=== PATIENT | female | born 1965 | race Caucasian/White ===

== ENCOUNTER 2018-03-31 23:12 | Emergency (ER) | payer MEDICAID ==
--- NOTE | 2018-03-31 23:15 | NUR ---
to bed 11 bib paramedics c/o highblood pressure SBP 200's per pt report. 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 pt aaox4 no acute distress noted, resp even and unlabored. pt appears anxious at this time. pt denies pain or discomfort. pupils perrla, pt able to move all extremities well with bilateral equal telephone order clerk room service. er md at bedside to eval pt with orders received. will carry out orders.
--- NOTE | 2018-03-31 23:35 | NUR ---
pt transported to radiology for ct head.
--- NOTE | 2018-03-31 23:58 | NUR ---
pt back from radiology. pending ct head result.
[2018-03-31 23:59] LABS: BASOPHILS % (AUTO) 0.4 % (0.0-2.0); EOSINOPHILS % (AUTO) 0.2 % (0.0-6.0); HEMATOCRIT 39 % (33-45); HEMOGLOBIN 13.3 g/dL (11.5-14.8); LYMPHOCYTES # (AUTO) 1.7 /CMM (0.8-4.8); LYMPHOCYTES % (AUTO) 31.6 % (20.0-44.0); MEAN CORPUSCULAR HEMOGLOBIN 31 PG (26.0-33.0); MEAN CORPUSCULAR HGB CONC 34 g/dl (31.0-36.0); MEAN CORPUSCULAR VOLUME 92 fL (82-100); MONOCYTES # (AUTO) 0.5 /CMM (0.1-1.30); MONOCYTES % (AUTO) 9.7 % (2.0-12.0); NEUTROPHILS # (AUTO) 3.2 /CMM (1.8-8.9); NEUTROPHILS % (AUTO) 58.1 % (43.0-81.0); PLATELET COUNT (AUTO) 264 /CMM (150-450); RDW COEFFICIENT OF VARIATION 13.3 (11.5-15.0); WHITE BLOOD COUNT (AUTO) 5.4 K/uL (4.3-11.0)
[2018-04-01 00:04] LABS: APPEARANCE,URINE CLEAR (CLEAR); BILIRUBIN,URINE NEGATIVE (NEGATIVE); BLOOD, URINE NEGATIVE Ery/uL (NEGATIVE); KETONES,URINE NEGATIVE (NEGATIVE); LEUKOCYTE ESTERASE ,URINE NEGATIVE (NEGATIVE); NITRITE, URINE NEGATIVE (NEGATIVE); PH,URINE 7.5 (5.0-8.0); PROTEIN,URINE NEGATIVE (NEGATIVE); UGLUCOSE NEGATIVE (NEGATIVE); UROBILINOGEN,URINE 0.2 EU/dL (0.2)
[2018-04-01 00:11] LABS: COLOR,URINE STRAW (YELLOW)
[2018-04-01 00:15] LABS: INR 0.93 (0.87-1.13)
[2018-04-01 00:19] LABS: TROPONIN I < 0.017 ng/mL (0.00-0.056)
[2018-04-01 00:30] LABS: CALCIUM, SERUM 9.4 mg/dL (8.5-10.1); CARBON DIOXIDE 27 mmol/L (21-32); CHLORIDE 103 mmol/L (98-107); CREATININE 0.8 mg/dL (0.6-1.3); GLUCOSE 96 mg/dL (74-106); POTASSIUM 3.3 mmol/L (3.5-5.1); SODIUM SERUM 139 mmol/L (136-145); UREA NITROGEN, BLOOD 11 mg/dL (7-18)
[2018-04-01 00:38] LABS: ALANINE AMINOTRANSFERASE 24 U/L (12-78); ALBUMIN 4.2 g/dL (3.4-5.0); ALKALINE PHOSPHATASE 75 U/L (46-116); ASPARTATE AMINOTRANSFERASE 15 U/L (15-37); BILIRUBIN,TOTAL 0.2 mg/dL (0.2-1.0); TOTAL PROTEIN, SERUM 7.9 g/dL (6.4-8.2)
[2018-04-01 01:07] VITALS: BP 156/82
--- NOTE | 2018-04-01 01:08 | NUR ---
IV removed. Catheter intact and site benign. Pressure and 4x4 applied to site. No bleeding noted. Patient discharged to home in stable condition. Written and verbal after care instructions given. Patient verbalizes understanding of instruction. ambulatory with a steady gait
== END 2018-04-01 01:09 | disposition home or self-care (01) ==
LOC: ER 23:13
DX: I10 Essential (primary) hypertension (principal); E03.9 Hypothyroidism, unspecified; E05.91 Thyrotoxicosis, unspecified with thyrotoxic crisis or storm; F17.200 Nicotine dependence, unspecified, uncomplicated
CPT/HCPCS: 36415; 70450-TC; 71045-TC; 80048-TC; 80076-TC; 81000-TC; 84484-TC; 85025-TC; 85730-TC

== ENCOUNTER 2018-04-05 03:19 | Emergency (ER) | payer MEDICAID ==
[~2018-04-05] VITALS: Ht 167.6 cm; Wt 70.3 kg
[2018-04-05] MEDS ORDERED: LORAZEPAM 1 MG TABLET ONE (03:41)
[2018-04-05] MEDS ORDERED: LORAZEPAM 1 MG TABLET PO ONE (04:00)
[2018-04-05] MEDS ORDERED: PANTOPRAZOLE 40 MG VIAL ONE (04:12)
[2018-04-05] MEDS ORDERED: ONDANSETRON HCL/PF 4 MG/2 ML VIAL ONE (04:12)
[2018-04-05] MEDS ORDERED: MORPHINE SULFATE INJ 4 MG/ML DISP.SYRIN ONE (04:13)
[2018-04-05 04:28] VITALS: BP 130/76
== END 2018-04-05 04:29 | disposition home or self-care (01) ==
LOC: ER 03:22
DX: I10 Essential (primary) hypertension (principal); F41.9 Anxiety disorder, unspecified; E05.90 Thyrotoxicosis, unspecified without thyrotoxic crisis or storm
CPT/HCPCS: A4606; C9113; J2270; J2405; Z7610